=== PATIENT | male | born 1990 | race Two or more races ===

== ENCOUNTER 2018-05-15 11:04 | Emergency (ER) | payer SELFPAY ==
[~2018-05-15] VITALS: Ht 172.7 cm; Wt 100.0 kg
[2018-05-15 11:09] VITALS: BP 142/66
[2018-05-15] MEDS ORDERED: IBUPROFEN 200 MG TABLET ONE (11:40)
[2018-05-15] MEDS ORDERED: IBUPROFEN 200 MG TABLET PO ONE (12:00)
== END 2018-05-15 12:49 | disposition home or self-care (01) ==
LOC: ED 12:15
DX: G89.11 Acute pain due to trauma (principal); M25.561 Pain in right knee; Z87.891 Personal history of nicotine dependence; X50.1XXA Overexertion from prolonged static or awkward postures, initial encounter; Y93.89 Activity, other specified; Y99.0 Civilian activity done for income or pay; Y92.69 Other specified industrial and construction area as the place of occurrence of the external cause
CPT/HCPCS: 99284